=== PATIENT | male | born 1935 | race Caucasian/White ===

== ENCOUNTER 2018-03-02 10:08 | Emergency (ER) | payer OTHER, MEDICARE ==
--- NOTE | 2018-03-02 10:17 | ER Document Report ---
HPI - HPI Patient complains to provider of: right hand injury Onset: Yesterday - 6 pm Quality of pain: Achy Pain Level: 4 Context: 82-year-old right-handed male was playing for ants last night at 6 PM and fell injuring his right thumb and hand. Right wrist is nontender. Associated Symptoms: None Exacerbated by: Movement Relieved by: Denies Similar symptoms previously: No Recently seen / treated by doctor: No - ROS ROS below otherwise negative: Yes Systems Reviewed and Negative: Yes All other systems reviewed and negative - REPRODUCTIVE Reproductive: DENIES: : Past Medical History - General Information source: Patient - Social History Family History: Reviewed & Not Pertinent - Past Medical History Cardiac Medical History: Reports: Hx Atrial Fibrillation, Hx Congestive Heart Failure, Hx Coronary Artery Disease, Hx Hypertension Pulmonary Medical History: Reports: Hx Sleep Apnea Neurological Medical History: Denies: Hx Seizures Past Surgical History: Reports: Hx Appendectomy, Hx Cardiac Catheterization - 2011, Hx Cardiac Surgery - Aortic valve replacement, 2011, Hx Cholecystectomy, Hx Coronary Artery Bypass Graft - 5-way, 1999, Hx Orthopedic Surgery Vertical Provider Document - INFECTION CONTROL TRAVEL OUTSIDE OF THE [place] IN LAST 30 DAYS: No Course - Vital Signs Vital signs: Temp Pulse Resp BP Pulse Ox 97.7 F 73 20 143/72 H 97 03/02/18 10:12 03/02/18 10:12 03/02/18 10:12 03/02/18 10:12 03/02/18 10:12
[2018-03-02] MEDS ORDERED: ASPIRIN 81 MG TABLET, CHEWABLE PO ONE (10:29)
--- NOTE | 2018-03-02 10:29 | ER Document Report ---
ED Medical Screen (RME) - General Chief Complaint: Hand Injury Stated Complaint: FALL/RIGHT HAND PAIN Time Seen by Provider: 03/02/18 10:17 Mode of Arrival: Wheelchair Information source: Patient Notes: 82 yo male fell due to getting too weak "gave out- lost consciousness" while walking back to the house after spraying for fireants- 3 acres. [place] it coming on. c/o left upper arm muscle pain and right thumb jorge. DID lose consiousness for a few minutes. When he woke up used the chain linked fence to get himself up. TRAVEL OUTSIDE OF THE [place] IN LAST 30 DAYS: No - Related Data Allergies/Adverse Reactions: No Known Allergies Allergy (Verified 03/02/18 10:09) Past Medical History - Past Medical History Cardiac Medical History: Reports: Hx Atrial Fibrillation, Hx Congestive Heart Failure, Hx Coronary Artery Disease, Hx Hypertension Pulmonary Medical History: Reports: Hx Sleep Apnea Neurological Medical History: Denies: Hx Seizures Renal/ Medical History: Denies: Hx Peritoneal Dialysis Past Surgical History: Reports: Hx Appendectomy, Hx Cardiac Catheterization - 2011, Hx Cardiac Surgery - Aortic valve replacement, 2011, Hx Cholecystectomy, Hx Coronary Artery Bypass Graft - 5-way, 1999, Hx Orthopedic Surgery Physical Exam - Vital signs Vitals: Temp Pulse Resp BP Pulse Ox 97.7 F 73 20 143/72 H 97 03/02/18 10:12 03/02/18 10:12 03/02/18 10:12 03/02/18 10:12 03/02/18 10:12 Course - Vital Signs Vital signs: Temp Pulse Resp BP Pulse Ox 97.7 F 73 20 143/72 H 97 03/02/18 10:12 03/02/18 10:12 03/02/18 10:12 03/02/18 10:12 03/02/18 10:12
--- NOTE | 2018-03-02 10:31 | ER Document Report ---
ED General - General Chief Complaint: Hand Injury Stated Complaint: SYNCOPE Time Seen by Provider: 03/02/18 10:17 Mode of Arrival: Wheelchair Information source: Patient, Relative - TRAVEL OUTSIDE OF THE [place] IN LAST 30 DAYS: No - HPI Notes: 82-year-old male with an extensive past medical history of A. fib, CHF, gout, CAD, cardiac cath presents to the ER today with family for an evaluation after falling while he was water around 6 PM at night. pt states he stumbled and fell , unwitnessed fall. Patient fell forward, hitting his forehead as well as his right hand. denies pain 2/10 in hand, achy. no otc meds tried. Patient states he was out for less than 20 minutes. Denies fevers, chills, chest pain, palpitations, shortness of breath, dyspnea, nausea, vomiting, diarrhea, abdominal pain, hematuria,blurred vision, double vision, loss of vision, speech changes, LH, dizziness, syncope, headaches, wheezing, ST, URI, neck pain, weakness, bowel or bladder dysfunction, saddle anesthesia, numbness or tingling in bilateral upper or lower extremities equally, muscle paralysis, weakness in bilateral upper or lower extremities equally or rash. Denies IV drug use. - Related Data Allergies/Adverse Reactions: No Known Allergies Allergy (Verified 03/02/18 10:09) Past Medical History - General Information source: Patient - Social History Smoking Status: Former Smoker Family History: Reviewed & Not Pertinent Patient has suicidal ideation: No Patient has homicidal ideation: No - Past Medical History Cardiac Medical History: Reports: Hx Atrial Fibrillation, Hx Congestive Heart Failure, Hx Coronary Artery Disease, Hx Hypertension Pulmonary Medical History: Reports: Hx Sleep Apnea Neurological Medical History: Denies: Hx Seizures Renal/ Medical History: Denies: Hx Peritoneal Dialysis Past Surgical History: Reports: Hx Appendectomy, Hx Cardiac Catheterization - 2011, Hx Cardiac Surgery - Aortic valve replacement, 2011, Hx Cholecystectomy, Hx Coronary Artery Bypass Graft - -1999, Hx Orthopedic Surgery Review of Systems - Review of Systems Constitutional: See HPI EENT: No symptoms reported Cardiovascular: No symptoms reported Respiratory: No symptoms reported Gastrointestinal: No symptoms reported Genitourinary: No symptoms reported Male Genitourinary: No symptoms reported Musculoskeletal: See HPI Skin: No symptoms reported Hematologic/Lymphatic: No symptoms reported Neurological/Psychological: See HPI Physical Exam - Vital signs Vitals: Temp Pulse Resp BP Pulse Ox 97.7 F 73 20 143/72 H 97 03/02/18 10:12 03/02/18 10:12 03/02/18 10:12 03/02/18 10:12 03/02/18 10:12 - Notes Notes: PHYSICAL EXAMINATION: GENERAL: Well-appearing, well-nourished and in no acute distress. HEAD: Atraumatic, normocephalic. EYES: Pupils equal round and reactive to light, extraocular movements intact, sclera anicteric, conjunctiva are normal. ENT: Nares patent, oropharynx clear without exudates. Moist mucous membranes. No hemanotympanum . No blood in nares. No dental fracture. no septal hematoma. No step-off noted in bilateral orbital bones. No trismus. NECK: full APROM of cervical spine, noted cervical spinal tenderness on palpation from C5-C6. negative spurlings test. Fire Control Technician + 2 bilaterally and equally. Dtr +2 bilaterally and equally in BUE. Perrla, full eomi. Face symmetrical. No rashes observed. Point tenderness to right paraspinal muscles near C6. No lymphadenopathy. Full APROM with shoulders. TM intact bilaterally. No meningismus. No noted lymphadenopathy. LUNGS: Breath sounds clear to auscultation bilaterally and equal. No wheezes rales or rhonchi. HEART: Regular rate and rhythm without murmurs ABDOMEN: Soft, nontender, nondistended abdomen. No guarding, no rebound. No masses appreciated. Musculoskeletal: Normal range of motion, no pitting or edema. No cyanosis. Right hand with swelling to right thumb with noted ecchymosis. No open wounds or drainage. Radial pulse +2 in bilateral upper extremities equally. Strength 5 out of 5,normal sensory motor function and DTR +2 in bilateral upper extremities equally. Normal opposition, abduction, abduction, flexion, extension of all fingers and right left hand with diminished opposition of right thumb NEUROLOGICAL: Cranial nerves grossly intact. Normal speech, normal gait. Normal sensory, motor exams PSYCH: Normal mood, normal affect. SKIN: Warm, Dry, normal turgor, no rashes or lesions noted. Course - Re-evaluation Re-evalutation: 03/02/18 17:38 A chronically ill 82-year-old male presents for evaluation of falling yesterday while taking care of his lawn. Patient's adult granddaughter states that patient does make his own homemade wine, starts drinking around 4 PM does usually get drunk on a nightly basis. Is fallen multiple times. They do not have any suspicion that this syncopal event is due cardiac stroke like etiology. Patient does not offer, per granddaughter, that he drinks on a regular basis. Patient is seen at the NH for his care. Is not actively having any chest pain, shortness of breath, asthma or any other complaints besides his right hand. CBC negative for any leukocytosis or anemia, cardiac enzymes unremarkable. EKG negative for STEMI and is in A. fib. patient's heart rate is stable. CMP negative for any renal or hepatic dysfunction, electrolytes without any disturbances. Urinalysis negative for UTI, hematuria or proteinuria. She takes digoxin for his A. fib and he is not toxic on the blood draw. CT head showed mild ischemic changes in no acute stroke noted. CT cervical spine shows degenerative changes, CT facial bones shows no fracture, right hand x-rays does not show fracture just is significant swelling. X-ray negative for any acute findings, no vascular congestion. The BNP slightly elevated 943, right comparison appears to be his baseline history of CHF when he takes 40 mg of Lasix twice a day. will add 20 mg of Lasix to his daily regimen. Spoke with his sister, who his his research assistant with regard to treatments. I discussed with her that the patient they need to follow-up with his qa software test engineer tomorrow She said that get him an appointment at the NH. Also advised to follow concussion protocol as he did sustain change in level consciousness from falling yesterday. Likely patient fell from an intoxicated due to drinking his homemade wine which had an unknown alcohol percent. Granddaughter states he usually drinks quite often this is a common finding for him to fall. I have a low risk for a ruptured esophagus, pneumothorax, pulmonary embolism, ACS, thoracic aortic dissection, temporal arteritis, meningitis, intracranial hemorrhage, ischemic stroke, epidural mass abscess or lesion, cancer, cord compression, retroperitoneal bleed, spinal epidural hematoma, herniated disc causing severe spinal stenosis. At this time will discharge with return precautions and follow-up recommendations. Verbal discharge instructions given a the bedside and opportunity for questions given. Medication warnings reviewed. Patient is in agreement with this plan and has verbalized understanding of return precautions and the need for primary care follow-up in the next 24-72 hours. Spoke with Beena today 03/03/18, states they are at the primary care office today to be evaluated by PCP. States that patient is doing well, no complaints. - Vital Signs Vital signs: Temp Pulse Resp BP Pulse Ox 97.7 F 74 20 139/74 H 99 03/02/18 15:38 03/02/18 15:38 03/02/18 15:20 03/02/18 15:38 03/02/18 15:38 - Laboratory Result Diagrams: 03/02/18 11:40 03/02/18 13:00 Laboratory results interpreted by me: 03/02/18 03/02/18 03/02/18 11:40 13:00 13:00 RBC 3.65 L MCV 116 H MCH 41.1 H Plt Count 102 L Total Bilirubin 2.1 H NT-Pro-B Natriuret Pep 943 H Digoxin < 0.40 L - EKG Interpretation by Me Rhythm: A.Fib - hr 75bmp. No STEMI. Nonspecific ST segment changes. No change from previous EKG Discharge - Discharge Clinical Impression: Concussion Qualifiers: Encounter type: initial encounter Loss of consciousness presence/duration: with LOC of 30 min or less Qualified Code(s): S06.0X1A - Concussion with loss of consciousness of 30 minutes or less, initial encounter Closed head injury Qualifiers: Encounter type: initial encounter Qualified Code(s): S09.90XA - Unspecified injury of head, initial encounter Facial contusion Qualifiers: Encounter type: initial encounter Qualified Code(s): S00.83XA - Contusion of other part of head, initial encounter Sprain of hand, thumb, right Qualifiers: Encounter type: initial encounter Sprain of finger site: unspecified site Qualified Code(s): S63.601A - Unspecified sprain of right thumb, initial encounter Abrasion of face Qualifiers: Encounter type: initial encounter Qualified Code(s): S00.81XA - Abrasion of other part of head, initial encounter Condition: Good Disposition: HOME, SELF-CARE Instructions: Abrasions of the Face ([facility]), Concussion ([facility]), Neck Injury ( Cervical Strain) ([facility]), Post-Concussion Syndrome ([facility]), Sprained Thumb ([facility]) Additional Instructions: Head Injury Your child's examination shows no evidence of brain injury. The child can therefore be safely observed at home. Give clear liquids only for the first eight hours. Acetaminophen or ibuprofen can safely be given for pain. Follow the directions on the bottle. Do not give any medication that may alter her/his level of alertness. Limit activity for the first 24 hours -- bed rest is advisable at first. Several times during the first 24 hours, check the patient to see if the pupils are equal in size to each other, that the patient is easily arousable, and responds normally. Contact your doctor or go to the hospital if any of the following things occur: Persistent or projectile vomiting, a seizure, confusion , unequal pupil size, difficulty in arousing the patient, worsening or continued headache, or failure to improve as expected. Concussion You have suffered a concussion -- a temporary loss of certain brain functions due to a mild brain injury. The recovery is usually rapid and complete. The temporary problems occurring with a concussion can include loss of consciousness, dizziness, nausea, vomiting, and confusion. Repeat concussions can cause brain damage. In the future, avoid activities that will cause a blow to your head. Wear a helmet for sports such as snowboarding, biking, or skating. It's important that someone be with you for the first 24 hours. During this time, do not exercise or drive a vehicle. Do not take any pain medication stronger than acetaminophen unless prescribed by the physician. Any significant changes should be reported immediately to the physician. Signs of a problem may include: (1) Mental confusion (2) Incoordination or staggering (3) Repeated or forceful vomiting (4) Clear or bloody drainage from ear, mouth, or nose (5) Severe headache, not relieved by acetaminophen or prescribed pain medication (6) Failure to improve in 24 hours Abrasions of the Face A scraping injury of the face can result in scarring. While not as prone to infection as abrasions elsewhere, a facial abrasion requires careful care to minimize scar. Usually the abrasions cannot be dressed. Standard treatment is to apply a thin coating of an antibiotic ointment to the scrapes frequently (two or three times a day) until the abrasions are healed. Wash the wound daily with a mild soap (like Phisoderm) to remove excess crusting and debris. Stay away from dirt and irritating chemicals. Complete healing may take anywhere from ten days to a month. The healing time depends on the depth of the abrasion and on the amount of crushing of underlying tissues which occurred. Once healing is complete, use a sunscreen on the area for about six months. If any signs of infection occur (swelling, redness, increasing tenderness, red streaks, profuse purulent drainage from the abrasion, tender lumps in the neck on the side of the abrasion, or fever), see the doctor immediately. You have likely sustained a contusion (bruise) to your head. Your CT head did not show any evidence of serious injury or bleeding. Symptoms to expect from a concussion include nausea, mild to moderate headache, difficulty concentrating or sleeping, and mild lightheadedness. These symptoms should improve over the next few days to weeks. Return to the emergency department or follow-up with your primary care doctor if your symptoms are not improving over this time. Signs of a more serious head injury include vomiting, severe headache, excessive sleepiness or confusion, and weakness or numbness in your face, arms or legs. Return immediately to the Emergency Department if you experience any of these more concerning symptoms. Rest, avoid strenuous physical or mental activity, and avoid activities that could potentially result in another head injury until all your symptoms from this head injury are completely resolved for at least 2-3 weeks. If you participate in sports, get cleared by your doctor or sales training manager before returning to play. You may take ibuprofen or acetaminophen over the counter according to label instructions for mild headache or scalp soreness. Follow-up with radiologic electronic specialist within 3-5 days. Wear thumb spica as directed. Apply heat 20 minutes on 20 minutes off several times a day. Follow- up with primary care provider within the next 24 hours. Return immediately for any new or worsening symptoms. Follow up with primary care provider, call tomorrow to make followup appointment. Referrals: COURTNEY SHRESTHA MD [COMMUNITY BASED STAFF] - Follow up in 3-5 days KIANA PHAM MD [ACTIVE STAFF] - Follow up in 3-5 days NORI RESTREPO MD [ACTIVE STAFF] - Follow up tomorrow
--- NOTE | 2018-03-02 11:30 | RADIOLOGY REPORT (SQ) ---
EXAM DESCRIPTION: HAND RIGHT 3 VIEWS COMPLETED DATE/TIME: 03/02/2018 10:44 am REASON FOR STUDY: injury COMPARISON: None. EXAM PARAMETERS: NUMBER OF VIEWS: Three views. TECHNIQUE: AP, lateral and oblique radiographic images acquired of the right hand. LIMITATIONS: None. FINDINGS: MINERALIZATION: Normal. BONES: No acute fracture or dislocation. No worrisome bone lesions. JOINTS: There is joint space narrowing with bony spurring at the 1st carpometacarpal and 1st metacarp ophalangeal joints. No malalignment. Mild joint space narrowing and bony spurring throughout the interphalangeal joints of the fingers fro m mild osteoarthritis. SOFT TISSUES: Right thumb soft tissue swelling. No radiopaque foreign body or soft tissue gas. OTHER: No other significant finding. IMPRESSION: Soft tissue swelling right thumb without acute displaced fracture TECHNICAL DOCUMENTATION: JOB ID: [id number] [facility]- All Rights Reserved Reading location - IP/workstation name: [email or web address]
--- NOTE | 2018-03-02 11:40 | RADIOLOGY REPORT (SQ) ---
EXAM DESCRIPTION: CT CERVICAL SPINE WITHOUT COMPLETED DATE/TIME: 03/02/2018 11:01 am REASON FOR STUDY: syncope COMPARISON: None. TECHNIQUE: Axial images acquired through the cervical spine without intravenous contrast. Images re viewed with lung, soft tissue and bone windows. Reconstructed coronal and sagittal MPR images review ed. Images stored on PACS. All CT scanners at this facility use dose modulation, iterative reconstruction, and/or weight based d osing when appropriate to reduce radiation dose to as low as reasonably achievable (ALARA). [facility]: Dose Right [facility]: CareDose [facility]: Dose Right [facility]: Teradose 4D [facility]: [employer] RADIATION DOSE: CT Rad equipment meets quality standard of care and radiation dose reduction techniq ues were employed. CTDIvol: 22.3 mGy. DLP: 403 mGy-cm. mGy. LIMITATIONS: None. FINDINGS: ALIGNMENT: Anatomic. MINERALIZATION: Normal. VERTEBRAL BODIES: No fractures or dislocation. DISCS: Multilevel disc space narrowing with osteophytes. FACETS, LATERAL MASSES, POSTERIOR ELEMENTS: Facet arthropathy. No fractures. No dislocation. No ac linda findings. HARDWARE: None in the spine. VISUALIZED RIBS: No fractures. LUNG APICES AND SOFT TISSUES: No significant or acute findings. OTHER: No other significant finding. IMPRESSION: CHRONIC DEGENERATIVE CHANGES. NO ACUTE FINDINGS. TECHNICAL DOCUMENTATION: JOB ID: [id number] Quality ID # [id number]: Final reports with documentation of one or more dose reduction techniques (e.g., Au tomated exposure control, adjustment of the mA and/or kV according to patient size, use of iterative reconstruction technique) 2010 [employer]- All Rights Reserved Reading location - IP/workstation name: [email or web address]
--- NOTE | 2018-03-02 11:45 | RADIOLOGY REPORT (SQ) ---
EXAM DESCRIPTION: CT HEAD WITHOUT COMPLETED DATE/TIME: 03/02/2018 11:01 am REASON FOR STUDY: syncope COMPARISON: None. TECHNIQUE: Axial images acquired through the brain without intravenous contrast. Images reviewed wi th bone, brain and subdural windows. Additional sagittal and coronal reconstructions were generated. Images stored on PACS. All CT scanners at this facility use dose modulation, iterative reconstruction, and/or weight based d osing when appropriate to reduce radiation dose to as low as reasonably achievable (ALARA). [facility]: Dose Right [facility]: CareDose [facility]: Dose Right [facility]: Teradose 4D [facility]: [employer] RADIATION DOSE: CT Rad equipment meets quality standard of care and radiation dose reduction techniq ues were employed. CTDIvol: 23.1 mGy. DLP: 487 mGy-cm. mGy. LIMITATIONS: None. FINDINGS: VENTRICLES: Prominent. CEREBRUM: No masses. No hemorrhage. No midline shift. Areas of low density in the white matter mos t likely due to chronic micro-vascular ischemic change. No evidence for acute infarction. CEREBELLUM: No masses. No hemorrhage. No alteration of density. No evidence for acute infarction. EXTRAAXIAL SPACES: Mild age-related involutional change. No fluid collections. No masses. ORBITS AND GLOBE: No intra- or extraconal masses. Normal contour of globe without masses. CALVARIUM: No fracture. PARANASAL SINUSES: Marked chronic changes in the left maxillary sinus with near complete opacificatio n. Chronic bony changes. There appears to be a tooth within the sinus likely originating from the l eft maxilla. SOFT TISSUES: No mass or hematoma. OTHER: No other significant finding. IMPRESSION: MILD CHRONIC CHANGES OF ATROPHY AND MICROVASCULAR ISCHEMIA. NO ACUTE intracranial PROCE SS. Marked chronic changes in the left maxillary sinus with near complete opacification. There appears t o be a tooth within the sinus, likely arising from the left alveolar ridge. EVIDENCE OF ACUTE STROKE: No TECHNICAL DOCUMENTATION: JOB ID: [id number] Quality ID # [id number]: Final reports with documentation of one or more dose reduction techniques (e.g., Au tomated exposure control, adjustment of the mA and/or kV according to patient size, use of iterative reconstruction technique) 2010 [employer]- All Rights Reserved Reading location - IP/workstation name: [email or web address] MACHINE OPERATOR [email or web address]
--- NOTE | 2018-03-02 11:59 | RADIOLOGY REPORT (SQ) ---
EXAM DESCRIPTION: CHEST SINGLE VIEW COMPLETED DATE/TIME: 03/02/2018 11:04 am REASON FOR STUDY: syncope COMPARISON: 12/21/2015 NUMBER OF VIEWS: One view. TECHNIQUE: Single frontal radiographic view of the chest acquired. LIMITATIONS: None. FINDINGS: LUNGS AND PLEURA: No opacities, masses or pneumothorax. No pleural effusion. MEDIASTINUM AND HILAR STRUCTURES: No masses. Contour normal. HEART AND VASCULAR STRUCTURES: Heart normal in size. Normal vasculature. Prior CABG. BONES: No acute findings. HARDWARE: CABG hardware. OTHER: No other significant finding. IMPRESSION: NO SIGNIFICANT RADIOGRAPHIC FINDING IN THE CHEST. PRIOR CABG. TECHNICAL DOCUMENTATION: JOB ID: [id number] [employer]- All Rights Reserved Reading location - IP/workstation name: [email or web address]
[2018-03-02 12:02] LABS: ABSOLUTE BASOPHILS # (AUTO) 0.1 10^3/uL (0.0-0.2); ABSOLUTE EOSINOPHILS # (AUTO) 0.1 10^3/uL (0.0-0.6); ABSOLUTE LYMPHOCYTES (AUTO) 1.9 10^3/uL (0.5-4.7); ABSOLUTE MONOCYTES (AUTO) 0.9 10^3/uL (0.1-1.4); ABSOLUTE NEUT (AUTO) 6.2 10^3/uL (1.7-8.2); HEMATOCRIT 42.5 % (37.9-51.0); LYMPHOCYTES % (AUTO) 20.3 % (13-45); MEAN CORPUSCULAR HEMOGLOBIN 41.1 pg (27.0-33.4); MEAN CORPUSCULAR HGB CONC 35.3 g/dL (32.0-36.0); MEAN CORPUSCULAR VOLUME 116 fl (80-97); MONOCYTES % (AUTO) 10.3 % (3-13); PLATELET COUNT 102 10^3/uL (150-450); RED BLOOD COUNT 3.65 10^6/uL (4.35-5.55); RED CELL DISTRIBUTION WIDTH 13.9 % (11.5-14.0); SEGMENTED NEUTROPHILS % (AUTO) 67.4 % (42-78); TOTAL CELLS COUNTED % (AUTO) 100 %; WHITE BLOOD COUNT 9.2 10^3/uL (4.0-10.5)
[2018-03-02 12:22] LABS: ANISOCYTOSIS 1+; PLATELET COMMENT ADEQUATE; SCHISTOCYTES SLIGHT
[2018-03-02 12:43] LABS: APPEARANCE,URINE CLEAR; BILIRUBIN,URINE NEGATIVE (NEGATIVE); COLOR,URINE YELLOW; GLUCOSE, URINE NEGATIVE (NEGATIVE); KETONES,URINE NEGATIVE (NEGATIVE); LEUKOCYTE ESTERASE,URINE NEGATIVE (NEGATIVE); NITRITE,URINE NEGATIVE (NEGATIVE); PROTEIN,URINE NEGATIVE (NEGATIVE); URINE SPECIFIC GRAVITY 1.014; UROBILINOGEN,URINE NEGATIVE mg/dL (<2.0)
--- NOTE | 2018-03-02 12:45 | RADIOLOGY REPORT (SQ) ---
EXAM DESCRIPTION: CT FACIAL AREA WITHOUT COMPLETED DATE/TIME: 03/02/2018 12:16 pm REASON FOR STUDY: syncopal event, fell on face/head COMPARISON: None. TECHNIQUE: Noncontrasted images through the facial bones and orbits windowed for bone and soft tissu e. Additional coronal and sagittal reconstructed images reviewed. All images stored on PACS. All CT scanners at this facility use dose modulation, iterative reconstruction, and/or weight based d osing when appropriate to reduce radiation dose to as low as reasonably achievable (ALARA). [facility]: Dose Right [facility]: CareDose [facility]: Dose Right [facility]: Teradose 4D [facility]: Smart appAttach RADIATION DOSE: CT Rad equipment meets quality standard of care and radiation dose reduction techniq ues were employed. CTDIvol: 13.2 mGy. DLP: 390 mGy-cm. mGy. LIMITATIONS: None. FINDINGS: FACIAL BONES: No acute fracture dislocation. There is bony sclerosis and hypertrophy with associated erosive changes in the maxilla on the left resulting in a bony defect and displacement of a tooth into the left maxillary antra. ORBITS: Intact. No fracture. Symmetric intact globes and retroorbital soft tissues. PARANASAL SINUSES: There is opacification of the left maxillary antra containing a displaced tooth. SOFT TISSUES: No mass or edema. INFERIOR BRAIN: Limited view. No acute findings. OTHER: No other significant finding. IMPRESSION: No acute fracture dislocation. Chronic appearing changes involving the left maxilla as noted above resulting in a bony defect and displacement of a tooth into the left maxillary antra. Th ere is opacification of the left maxillary antra. Other findings as noted above. TECHNICAL DOCUMENTATION: JOB ID: [id number] Quality ID # [id number]: Final reports with documentation of one or more dose reduction techniques (e.g., Au tomated exposure control, adjustment of the mA and/or kV according to patient size, use of iterative reconstruction technique) 2010 [employer]- All Rights Reserved Reading location - IP/workstation name: [facility]
[2018-03-02 13:36] LABS: ALANINE AMINOTRANSFERASE 38 U/L (21-72); ALBUMIN 4.6 g/dL (3.5-5.0); ALKALINE PHOSPHATASE 97 U/L (38-126); ANION GAP 11 (5-19); ASPARTATE AMINO TRANSFERASE 33 U/L (17-59); BILIRUBIN,DIRECT 0.3 mg/dL (0.0-0.4); BILIRUBIN,TOTAL 2.1 mg/dL (0.2-1.3); BLOOD UREA NITROGEN 16 mg/dL (7-20); CARBON DIOXIDE 30 mmol/L (22-30); CHLORIDE 103 mmol/L (98-107); CREATINE KINASE 62 U/L (55-170); GLUCOSE 109 mg/dL (75-110); POTASSIUM 3.8 mmol/L (3.6-5.0); SODIUM 143.6 mmol/L (137-145); TOTAL PROTEIN 7.6 g/dL (6.3-8.2)
[2018-03-02 13:38] LABS: ALCOHOL < 10 mg/dL (NONE DETECTED); DIGOXIN < 0.40 ng/mL (0.8-2.0)
[2018-03-02 13:46] LABS: CREATINE KINASE MB 0.98 ng/mL (<4.55); TROPONIN I 0.013 ng/mL
--- NOTE | 2018-03-02 14:26 | EKG REPORT ---
SEVERITY:- ABNORMAL ECG - ATRIAL FIBRILLATION, V-RATE 56-89 RIGHT BUNDLE BRANCH BLOCK : Confirmed by: Og Duque 02-Mar-2018 14:25:32
[2018-03-02] MEDS ORDERED: FUROSEMIDE 40 MG TABLET PO ONE (15:32)
[2018-03-02 15:39] VITALS: BP 139/74
== END 2018-03-02 16:00 | disposition home or self-care (01) ==
LOC: ER 10:08
DX: S06.0X1A Concussion with loss of consciousness of 30 minutes or less, initial encounter (principal); S63.601A Unspecified sprain of right thumb, initial encounter; S00.83XA Contusion of other part of head, initial encounter; W19.XXXA Unspecified fall, initial encounter; I11.0 Hypertensive heart disease with heart failure; I50.9 Heart failure, unspecified; M47.9 Spondylosis, unspecified; I25.10 Atherosclerotic heart disease of native coronary artery without angina pectoris; I48.91 Unspecified atrial fibrillation; Z79.899 Other long term (current) drug therapy; Z95.2 Presence of prosthetic heart valve; Z95.1 Presence of aortocoronary bypass graft; Z87.891 Personal history of nicotine dependence
CPT/HCPCS: 93005; 99284; 36415; 82553; 80307; 82550; 80162; 85025; 80053; 81001; 84484; 83880; 71045; 73130; 70450; 70486; 72125; 93010; 29125; L0120